=== PATIENT | male | born 1990 | race Two or more races ===

== ENCOUNTER 2016-11-02 12:43 | Emergency (ER) | payer MEDICAID ==
[~2016-11-02] VITALS: Ht 172.7 cm; Wt 145.1 kg
[2016-11-02 13:02] VITALS: BP 190/101
== END 2016-11-02 15:11 | disposition home or self-care (01) ==
LOC: ER 12:43
DX: F32.9 Major depressive disorder, single episode, unspecified (principal); Z76.0 Encounter for issue of repeat prescription

== ENCOUNTER 2017-06-08 17:40 | Inpatient (IN) | payer MEDICAID ==
[~2017-06-08] VITALS: Ht 172.7 cm; Wt 113.9 kg
[2017-06-08] MEDS ORDERED: ACETAMINOPHEN 325 MG TAB PO ONE ×2 (18:15→18:45)
[2017-06-09] MEDS ORDERED: cefTRIAXone 1GM/10ml IVPUSH 10 ML IV ONE ×2 (02:46→03:15)
[2017-06-09] MEDS ORDERED: VANCOMYCIN 1GM/250ML 250 ML IV ONE ×2 (02:47→03:15)
[2017-06-09 03:01] LABS: Hematocrit 37.5 % (41.0-53.0); Hemoglobin 12.7 g/dL (13.5-17.5); Mean Corpuscular Hemoglobin 27.4 pg (28.0-32.0); Mean Corpuscular Hgb Conc. 33.8 g/dL (32.0-36.0); Platelet Count (auto) 314 10^3/uL (140-450); Red Blood Cells 4.62 10^6/uL (4.5-5.90); Red Cell Distribution Width 15.8 % (11.8-14.3); White Blood Cell 9.9 10^3/uL (4.4-10.8)
[2017-06-09 03:03] LABS: Band Neutrophils % (manual) 0; Basophils % (manual) 0 (0.0-2.0); Blast Cells 0; Eosinophils % (manual) 0 (0-7); Metamyelocytes % 0; Myelocytes % 0; Promyelocytes % 0
[2017-06-09] MEDS ORDERED: HYDROcodone-ACET 10/325MG TAB PO ONE (03:15)
[2017-06-09 03:19] LABS: Albumin 3.2 g/dL (3.4-5.0); Calcium 9.3 mg/dL (8.5-10.1); Potassium 4.2 mmol/L (3.5-5.1)
[2017-06-09 03:22] LABS: BUN/Creatinine Ratio 21.8; Bilirubin, Total 1.1 mg/dL (0.2-1.0); Total Protein 9.2 g/dL (6.4-8.2)
[2017-06-09 03:52] LABS: Lymphocytes % (manual) 22 (10.0-50.0); Monocytes % (manual) 6 (0-12); Reactive Lymphocytes 3
[2017-06-09] MEDS ORDERED: VANCOMYCIN PER PHARMACY 0 MG IV SCH (05:45)
[2017-06-09] MEDS ORDERED: TEMAZEPAM 15 MG CAP PO PRN (05:45)
[2017-06-09] MEDS ORDERED: ONDANSETRON HCL 4 MG/2 ML VIAL IV PRN (05:45)
[2017-06-09] MEDS ORDERED: HYDROcodone-ACET 5/325MG TAB PO PRN (05:45)
[2017-06-09] MEDS ORDERED: ACETAMINOPHEN 325 MG TAB PO PRN (05:45)
[2017-06-09] MEDS ORDERED: SODIUM CHLORIDE 0.9% 1,000 ML IV ONE (05:45)
[2017-06-09] MEDS: SODIUM CHLORIDE 0.9% 1,000 ML IV SCH ×2 (06:45→21:27)
[2017-06-09 09:00] VITALS: BP 122/71
[2017-06-09] MEDS: ENOXAPARIN SOD 40 MG/0.4 ML SYRINGE SC SCH (09:25)
[2017-06-09] MEDS: MORPHINE SULFATE 10 MG/ML INJ 1ML SDV IV PRN ×4 (09:25→23:05)
[2017-06-09] MEDS: FAMOTIDINE 20 MG TAB PO SCH ×3 (09:26→21:32)
[2017-06-09] MEDS: VANCOMYCIN 1GM/250ML 250 ML IV SCH ×2 (11:25→19:21)
[2017-06-09] MEDS ORDERED: INFLUENZA QUAD 2017-2018 0.5 ML SYRG IM ONE (12:00)
[2017-06-09 13:00] VITALS: BP 116/67
[2017-06-09 17:32] VITALS: BP 116/70
[2017-06-09 17:52] LABS: Alcohol, Urine < 3.0 mg/dL (0-5); Amphetamine Screen, Urine POSITIVE (NEGATIVE); Barbiturate Scree,Urine NEGATIVE (NEGATIVE); Benzodiazephine Screen, Urine NEGATIVE (NEGATIVE); Cannabinoid Screen, Urine NEGATIVE (NEGATIVE); Cocaine Screen, Urine NEGATIVE (NEGATIVE); Opiate Scree,Urine POSITIVE (NEGATIVE); Phencyclidine Screen, Urine NEGATIVE (NEGATIVE)
[2017-06-09 20:00] VITALS: BP 105/61
[2017-06-09 21:35] VITALS: BP 105/61
[2017-06-10] MEDS: MORPHINE SULFATE 10 MG/ML INJ 1ML SDV IV PRN ×2 (03:30→08:36)
[2017-06-10] MEDS: VANCOMYCIN 1GM/250ML 250 ML IV SCH (03:42)
[2017-06-10 05:53] VITALS: BP 128/72
[2017-06-10] MEDS: SODIUM CHLORIDE 0.9% 1,000 ML IV SCH (08:25)
[2017-06-10] MEDS: FAMOTIDINE 20 MG TAB PO SCH (08:35)
[2017-06-10] MEDS: ENOXAPARIN SOD 40 MG/0.4 ML SYRINGE SC SCH (08:35)
[2017-06-10 09:00] VITALS: BP 130/70
[2017-06-10] MEDS ORDERED: cefTRIAXone 1GM/10ml IVPUSH 10 ML IV SCH (09:00)
== END 2017-06-10 09:10 | disposition left against medical advice (07) | DRG 720 ==
LOC: ER 17:52 → OVERFLOW 17:53 → WEST WING 06-09 07:50
PROVIDERS: ADMIT Nurse Practitioner; ATTEND Nurse Practitioner
DX: A41.9 Sepsis, unspecified organism (principal); L03.115 Cellulitis of right lower limb; F11.10 Opioid abuse, uncomplicated; F17.210 Nicotine dependence, cigarettes, uncomplicated; L03.116 Cellulitis of left lower limb; Z53.21 Procedure and treatment not carried out due to patient leaving prior to being seen by health care provider; F32.9 Major depressive disorder, single episode, unspecified; Z59.0 Homelessness
CPT/HCPCS: 36415; 80053; 80307; 83605; 85007; 85027; 87040; 87077; 87186; 87205; 93970; 96361; 96365; 96375

== ENCOUNTER 2017-06-14 00:41 | Emergency (ER) | payer MEDICAID ==
[~2017-06-14] VITALS: Ht 172.7 cm; Wt 111.1 kg
[2017-06-14 02:55] LABS: Basophils # (auto) 0.1 uL; Eosinophils # (auto) 0.2 uL; Eosinophils % (auto) 2.8 % (0.0-7.0); Lymphocytes % (auto) 32.4 % (10.0-50.0); Monocytes # (auto) 0.6 uL; Neutrophils # (auto) 3.6 uL
[2017-06-14 02:57] LABS: Hematocrit 42.6 % (41.0-53.0); Hemoglobin 13.8 g/dL (13.5-17.5); Lymphocytes # (auto) 2.2 uL; Mean Corpuscular Hemoglobin 26.6 pg (28.0-32.0); Mean Corpuscular Hgb Conc. 32.4 g/dL (32.0-36.0); Mean Corpuscular Volume 82.1 fL (80.0-100.0); Monocytes % (auto) 9.4 % (0.0-12.0); Neutrophils % (auto) 54.4 % (37.0-80.0); Platelet Count (auto) 399 10^3/uL (140-450); Red Blood Cells 5.19 10^6/uL (4.5-5.90); Red Cell Distribution Width 15.4 % (11.8-14.3); White Blood Cell 6.7 10^3/uL (4.4-10.8)
[2017-06-14 03:13] LABS: Albumin 3.3 g/dL (3.4-5.0); BUN/Creatinine Ratio 22.4; Calcium 8.9 mg/dL (8.5-10.1); Potassium 4.2 mmol/L (3.5-5.1)
[2017-06-14 03:16] LABS: Bilirubin, Total 0.6 mg/dL (0.2-1.0); Total Protein 9.1 g/dL (6.4-8.2)
[2017-06-14 07:56] VITALS: BP 119/77
== END 2017-06-14 08:33 | disposition home or self-care (01) ==
LOC: ER 00:41
DX: L03.116 Cellulitis of left lower limb (principal); F17.210 Nicotine dependence, cigarettes, uncomplicated; F11.10 Opioid abuse, uncomplicated
CPT/HCPCS: 36415; 80053; 83605; 85025; 87040

== ENCOUNTER 2017-12-22 13:30 | Emergency (ER) | payer MEDICAID ==
[~2017-12-22] VITALS: Ht 172.7 cm; Wt 92.1 kg
[2017-12-22] MEDS ORDERED: HYDROcodone-ACET 5/325MG TAB PO ONE (15:30)
[2017-12-22] MEDS ORDERED: LORazepam 0.5 MG TAB PO ONE (15:30)
[2017-12-22 15:34] LABS: Albumin 3.5 g/dL (3.4-5.0); BUN/Creatinine Ratio 15.4; Bilirubin, Total 1.2 mg/dL (0.2-1.0); Potassium 3.8 mmol/L (3.5-5.1); Total Protein 7.5 g/dL (6.4-8.2)
[2017-12-22 15:56] LABS: Basophils # (auto) 0 uL; Basophils % (auto) 0.6 % (0.0-2.0); Eosinophils # (auto) 0.1 uL; Eosinophils % (auto) 2.6 % (0.0-7.0); Hematocrit 36.1 % (41.0-53.0); Lymphocytes # (auto) 1.6 uL; Lymphocytes % (auto) 30.8 % (10.0-50.0); Mean Corpuscular Hemoglobin 27.2 pg (28.0-32.0); Mean Corpuscular Hgb Conc. 33.3 g/dL (32.0-36.0); Mean Corpuscular Volume 81.8 fL (80.0-100.0); Monocytes # (auto) 0.6 uL; Monocytes % (auto) 12.2 % (0.0-12.0); Neutrophils # (auto) 2.7 uL; Neutrophils % (auto) 53.8 % (37.0-80.0); Nucleated Red Blood Cells % 0.6 %; Platelet Count (auto) 150 10^3/uL (140-450); Red Blood Cells 4.42 10^6/uL (4.5-5.90); Red Cell Distribution Width 19.4 % (11.8-14.3); White Blood Cell 5.1 10^3/uL (4.4-10.8)
[2017-12-22 17:14] VITALS: BP 117/68
== END 2017-12-22 17:48 | disposition home or self-care (01) ==
LOC: ER 13:30
DX: S63.501A Unspecified sprain of right wrist, initial encounter (principal); F17.210 Nicotine dependence, cigarettes, uncomplicated; Z59.0 Homelessness; X58.XXXA Exposure to other specified factors, initial encounter; Y93.89 Activity, other specified; Y99.8 Other external cause status; Y92.89 Other specified places as the place of occurrence of the external cause
CPT/HCPCS: 29125; 36415; 73110; 80053; 85025

== ENCOUNTER 2019-10-25 12:51 | Emergency (ER) | payer MEDICAID ==
[~2019-10-25] VITALS: Ht 172.7 cm; Wt 99.8 kg
[2019-10-25 13:22] VITALS: BP 129/87
[2019-10-25] MEDS ORDERED: cefTRIAXone SOD 1,000 MG VL IM ONE ×2 (14:45)
== END 2019-10-25 15:18 | disposition home or self-care (01) ==
LOC: ER 12:51
DX: L03.115 Cellulitis of right lower limb (principal); F17.210 Nicotine dependence, cigarettes, uncomplicated; Z59.0 Homelessness
CPT/HCPCS: 96372; 99284; J0696

== ENCOUNTER 2020-06-02 08:39 | Emergency (ER) | payer MEDICAID ==
[~2020-06-02] VITALS: Ht 172.7 cm; Wt 136.1 kg
[2020-06-02 09:55] VITALS: BP 136/82
[2020-06-02] MEDS ORDERED: cefTRIAXone SOD 1,000 MG VL IM ONE (10:15)
== END 2020-06-02 10:54 | disposition home or self-care (01) ==
LOC: ER 08:39
DX: S81.852A Open bite, left lower leg, initial encounter (principal); S81.851A Open bite, right lower leg, initial encounter; F17.210 Nicotine dependence, cigarettes, uncomplicated; W54.0XXA Bitten by dog, initial encounter; Y93.89 Activity, other specified; Y92.89 Other specified places as the place of occurrence of the external cause; Y99.8 Other external cause status
CPT/HCPCS: 96372; 99283; J0696